=== PATIENT | male | born 1980 | race Caucasian/White ===

== ENCOUNTER 2019-11-26 13:11 | Outpatient (CLI) | payer OTHER, SELFPAY ==
[2019-11-26 13:44] LABS: Add Urine Microscopic? YES; Appearance Urine Clear (Clear); Bacteria Urine Trace /hpf; Bilirubin Urine Negative (Negative); Blood Urine 1+ (Negative); Color Urine Yellow (Yellow); Glucose Urine UA Negative (Negative); Ketones Urine Negative (Negative); Leukocyte Esterase Ur 2+ LEU/UL (Negative); Mucus Urine Rare /lpf; Nitrate Urine Negative (Negative); Protein Urine Negative (Negative); Specific Grav Ur 1.019 (1.001-1.035); Squamous Epithelial Cell Urine Rare /hpf (Few); Urobilinogen Urine Negative mg/dL (<2.0); WBC Urine 51-75 /hpf
== END 2019-11-26 13:12 | disposition home or self-care (01) ==
LOC: ANHLAB 13:12
PROVIDERS: PCP Physician Assistant; Visit Provider Physician Assistant
DX: R30.0 Dysuria (principal)
CPT/HCPCS: 81001; 87086; 87088

== ENCOUNTER 2020-01-06 14:25 | Emergency (ER) | payer OTHER, SELFPAY ==
--- NOTE | 2020-01-06 14:26 | ED_ITS ---
I attest that this documentation has been prepared under the direction and in the presence of Usman Huffman MD. Dre Reynolds Scribe 01/06/20;14:28 HPI - URI/Sore Throat General Chief Complaint: Upper Respiratory Infection Stated Complaint: sob/cough Related Data Allergies Allergy/AdvReac Type Severity Reaction Status Date / Time No Known Allergies Allergy Unverified 07/04/19 08:49 [facility] Past Medical History Medical History Arthritis Renal disease Surgical History Surgical History (Updated 01/06/20 @ 14:27 by Dre Reynolds) No history of previous surgery Family History Family History Sibling Family history of multiple sclerosis Hypertension Mother Family history of pancreatic cancer Family history of seizure disorder Social History Social History (Updated 01/06/20 @ 14:27 by Dre Reynolds) Smoking packs per day: 1 Smoking cigarettes per day: 20.0 Smoking status: Heavy tobacco smoker Second hand tobacco smoke exposure: Yes Alcohol intake: current Substance use type: marijuana Discharge Plan Discharge Prescriptions: No Action sulfamethoxazole-trimethoprim [Bactrim DS] 800-160 mg tablet 1 tablet PO Q12H Qty: 14 RF: 0
[2020-01-06 14:37] VITALS: BP 135/91; PULSE 91; RESP 20; TEMP 36.8; O2SAT 98
--- NOTE | 2020-01-06 14:51 | ED.SOB ---
HPI - SOB/Dyspnea General Chief Complaint: Upper Respiratory Infection Stated Complaint: sob/cough Time Seen by Provider: 01/06/20 15:00 Source: patient and RN notes reviewed Mode of arrival: ambulatory Limitations: no limitations History of Present Illness HPI Narrative: A 39 y/o male, who is a smoker and nondrinker, presents to the with worsening SOB beginning last night. He reports an associated dry cough. 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 He also denies any fevers, rhinorrhea, wheezes, or any other medical complaints at this time. The patient has been informed that they may have pre-hypertension or Hypertension based on a BP reading in the department. I recommend that the patient call the primary care provider listed on their discharge instructions or a physician of their choice this week to arrange follow up for further evaluation of possible pre-hypertension or Hypertension MD elicited complaint: shortness of breath Onset (ago): day(s) (1) Timing: progressively worsening Associated symptoms: cough (dry) Related Data Allergies Allergy/AdvReac Type Severity Reaction Status Date / Time No Known Allergies Allergy Verified 01/06/20 14:28 Review of Systems Review of Systems: Narrative: General/Constitutional: No weight loss,fever Eyes: N0: Redness,discharge Ears/Nose/Throat: No: Epistaxis,ear discharge, rhinorrhea. Respiratory: Denies: Hemoptysis or wheezes. Reports SOB and a dry cough. Gastrointestinal: No Vomiting, Bleeding-rectal Skin: No Lumps, eruption Neurologic: No Focal Weakness,Sz Hematologic: Denies: Petechiae/Purpura Psychiatric: No: Suicida ideationl All Other Systems: Reviewed and Negative [facility] Past Medical History Medical History (Updated 01/08/20 @ 00:01 by Nery Liu) Arthritis Renal disease Surgical History Surgical History (Updated 01/06/20 @ 15:07 by Dre Reynolds) History of bladder surgery InterStim placement. Family History Family History Sibling Family history of multiple sclerosis Hypertension Mother Family history of pancreatic cancer Family history of seizure disorder Social History Social History (Updated 01/06/20 @ 14:27 by Dre Reynolds) Smoking packs per day: 1 Smoking cigarettes per day: 20.0 Smoking status: Heavy tobacco smoker Second hand tobacco smoke exposure: Yes Alcohol intake: current Substance use type: marijuana Gender identity (if verbalized by the patient): Male Comments At time of signature, agree with nursing past medical, surgical, social and family history. There is no relevant family history pertinent to the presenting complaint Exam Narrative: Exam Narrative: General Appearance: Well appearing, Well nourished EYE: PERRLA, Conjunctiva clear Ears: Auditory canal normal, TM normal Nose: Rhinorrhea, Mucousal erythema Mouth/Throat: MM moist, Uvula midline, Pharyngeal erythema Neck: Supple, No adenopathy Respiratory: No respiratory distress, Breath sounds equal, Clear to auscultation Cardiovascular: RRR, No JVD Musculoskeletal: Non tender, Normal strength Skin: Warm, Dry Neurological: A&O x3, CN II-XII intact Psychiatric: Normal mood, Normal affect Course Vital Signs Vital signs: Vital Signs Temperature 98.3 F 01/06/20 14:37 Pulse Rate 91 01/06/20 14:37 Respiratory Rate 20 01/06/20 14:37 Blood Pressure 135/91 H 01/06/20 14:37 Pulse Oximetry 98 01/06/20 14:37 Temperature 98.3 F 01/06/20 14:37 Pulse Rate 91 01/06/20 14:37 Respiratory Rate 20 01/06/20 14:37 Blood Pressure 135/91 H 01/06/20 14:37 Pulse Oximetry 98 01/06/20 14:37 MDM - SOB/Dyspnea Lab Data Labs: Influenza A Screen Negative Reference Range: Negative Influenza B Screen Negative Reference Range: Negative
== END 2020-01-06 15:21 | disposition home or self-care (01) ==
PROVIDERS: Emergency Provider Emergency Medicine; PCP Physician Assistant
DX: R06.02 Shortness of breath (principal); R05 Cough; M19.90 Unspecified osteoarthritis, unspecified site; F17.210 Nicotine dependence, cigarettes, uncomplicated
CPT/HCPCS: 87081; 87804; 87880; 99213; G0463

== ENCOUNTER 2020-05-07 11:28 | Outpatient (CLI) | payer OTHER, SELFPAY ==
[2020-05-07 11:45] LABS: Basophils Absolute Auto 0.1 K/mm3 (0.0-0.1); Basophils Percent Auto 0.9 % (0.2-1.2); Eosinophils Absolute Auto 0.2 K/mm3 (0-0.3); Eosinophils Percent Auto 2.4 % (0-4.4); Hematocrit 47.4 % (42.0-52.0); Hemoglobin 17.2 g/dL (14.0-18.0); Immature Granulocyte Absolute 0.03 K/mm3 (0.00-0.031); Immature Granulocyte Percent A 0.3 % (0-0.5); Lymphocytes Absolute Auto 2.41 K/mm3 (0.9-3.2); Lymphocytes Percent Auto 26.3 % (18.3-44.2); Mean Corpuscular HGB Conc 36.3 g/dl (32-36); Mean Corpuscular Hemoglobin 35.7 pg (26-34); Mean Corpuscular Volume 98.3 fl (80-100); Mean Platelet Volume 10.4 fl (7.4-10.4); Monocytes Absolute Auto 0.5 K/mm3 (0.1-0.6); Neutrophils Percent Auto 65.1 % (45.5-73.1); Platelet Count Result 243 k/mm3 (150-375); Red Blood Count 4.82 M/mm3 (4.6-6.20); Red Cell Distribution Width 12.3 % (11.5-14.5); White Blood Count 9.2 K/mm3 (4.5-10.0)
[2020-05-07 12:08] LABS: Alanine Aminotransferase 21 U/L (4-50); Albumin Level 4.5 g/dL (3.5-5.1); Alkaline Phosphatase 90 U/L (38-126); Aspartate Amino Transferase 34 U/L (17-59); Bilirubin,Total 0.9 mg/dL (0.2-1.3); Blood Urea Nitrogen 22 mg/dL (9-20); Calcium 9.3 mg/dL (8.4-10.2); Carbon Dioxide 26 mmol/L (22-30); Chloride 108 mmol/L (98-107); Cholesterol 218 mg/dL (0-200); Estimated Glomerular Filt Rate > 60; Glucose 107 mg/dL (75-110); HDL Direct 45 mg/dL; Potassium 4.4 mmol/L (3.4-5.0); Sodium 141 mmol/L (137-145); Triglycerides 91 mg/dL (<150)
[2020-05-07 12:11] LABS: LDL Cholesterol Direct 141 mg/dL
[2020-05-07 12:31] LABS: Prostate Specific Antigen 0.3 ng/mL (< OR = 4.0)
== END 2020-05-07 11:29 | disposition home or self-care (01) ==
LOC: ANHLAB 11:30
PROVIDERS: PCP Physician Assistant; Visit Provider Internal Medicine
DX: Z00.00 Encounter for general adult medical examination without abnormal findings (principal)
CPT/HCPCS: 36415; 80053; 80061; 84153; 84443; 85025; G0103

== ENCOUNTER 2020-07-03 13:07 | Emergency (ER) | payer OTHER, SELFPAY ==
[2020-07-03 13:27] VITALS: BP 133/90; PULSE 82; RESP 14; TEMP 36.7; O2SAT 99
--- NOTE | 2020-07-03 14:17 | ED.WOUNDLAC ---
HPI - Wound/Laceration General Chief Complaint: Wound/Laceration Stated Complaint: head laceration Time Seen by Provider: 07/03/20 13:35 Source: patient Mode of arrival: ambulatory Limitations: no limitations History of Present Illness HPI narrative: This is a 40-year-old male that presents the emergency department for laceration to his forehead sustained just prior to arrival. Reports he accidentally hit himself with a wrench while at work. Reports he is up-to-date on tetanus. Denies vision changes, vomiting, loss of consciousness, numbness, or weakness. Related Data Home Medications Medication Instructions Recorded Confirmed No Home Medications 05/24/20 05/24/20 Allergies Allergy/AdvReac Type Severity Reaction Status Date / Time No Known Allergies Allergy Verified 05/17/20 10:10 Review of Systems Review of Systems: Narrative: CONSTITUTIONAL: Denies fever EYES: Denies visual changes GASTROINTESTINAL: Denies vomiting NEUROLOGIC: Reports headache. Denies numbness, or weakness. All systems reviewed & are unremarkable except as noted in HPI and below PMFSH Social History Social History Smoking packs per day: 1 Smoking cigarettes per day: 20.0 Smoking status: Current every day smoker Second hand tobacco smoke exposure: Yes Alcohol intake: former Substance use: current Substance use type: marijuana Gender identity (if verbalized by the patient): Male Exam Narrative: Exam Narrative: GENERAL: Well-appearing, well-nourished, and in no acute distress. HEAD: Normocephalic, atraumatic. EYES: PERRLA and EOMI. ENT: Nares clear, no rhinorrhea or epistaxis. Mucous membranes moist. Oropharynx without tonsillar hypertrophy exudate or other lesions. Bilateral TMs pearly puentes non-bulging NECK: Supple. No adenopathy or masses. CHEST: Clear to auscultation. No respiratory distress. No wheezes rales or rhonchi HEART: Regular rate and rhythm. No murmur heard. Normal peripheral pulses. EXTREMITIES: Normal range of motion. No edema. SKIN: Warm, dry, no rash. NEURO: No focal deficits. Alert and oriented x3. Cranial nerves II through XII grossly intact PSYCH: Normal mood and affect Course Vital Signs Vital signs: Vital Signs Temperature 98.0 F 07/03/20 13:27 Pulse Rate 82 07/03/20 13:27 Respiratory Rate 14 07/03/20 13:27 Blood Pressure 133/90 07/03/20 13:27 Pulse Oximetry 99 07/03/20 13:27 Temperature 98.0 F 07/03/20 13:27 Pulse Rate 82 07/03/20 13:27 Respiratory Rate 14 07/03/20 13:27 Blood Pressure 133/90 07/03/20 13:27 Pulse Oximetry 99 07/03/20 13:27 Procedures Laceration Laceration 1: Date: 07/03/20 Time: 15:12 Site: face Side (If applicable): left Size (cm): 2 Description: linear Depth: simple, single layer Local Anesthetic: lidocaine 1% and with epi Amount of anesthesia used (mL): 2 Pre-repair: irrigated ====== Skin Level ====== Skin layer closed with: nylon Size (cm): 6-0 Number of sutures: 4 ====== Subcutaneous Layer ====== Subcutaneous layer closed with: other (Monocryl) Size: 4-0 Number of sutures: 1 Technique: simple, interrupted ====== Muscle Layer ====== ====== Tendon Layer ====== MDM - Wound/Laceration MDM Narrative Medical decision making narrative: Patient presents to the emergency department for laceration to the forehead sustained just prior to arrival. Hit himself in the face with a wrench. Denies vision changes, vomiting, numbness, or loss of consciousness. He is up-to-date on tetanus. Laceration was cleansed and closed with sutures. He was educated on wound care. He is to follow-up with primary care doctor. He was given warnings to return to the ER Critical Care Time Critical Care Time Critical Care Time: No Discharge Plan Discharge Clini
[2020-07-03 15:45] VITALS: BP 141/94; PULSE 71; RESP 14; O2SAT 99
== END 2020-07-03 15:30 | disposition home or self-care (01) ==
PROVIDERS: Emergency Provider Emergency Medicine; PCP Physician Assistant
DX: S01.81XA Laceration without foreign body of other part of head, initial encounter (principal); W22.8XXA Striking against or struck by other objects, initial encounter; Y99.0 Civilian activity done for income or pay; F17.210 Nicotine dependence, cigarettes, uncomplicated
CPT/HCPCS: 12051; 99282

== ENCOUNTER → 2021-01-17 10:23 | Outpatient (CLI) | payer OTHER, SELFPAY ==
[2021-01-18 18:30] LABS: SARS-CoV-2 RNA PCR Negative
== END ==
PROVIDERS: PCP Physician Assistant; Visit Provider Physician Assistant
DX: R68.89 Other general symptoms and signs (principal); Z20.822 Contact with and (suspected) exposure to COVID-19
CPT/HCPCS: C9803; U0003; U0005

== ENCOUNTER 2021-01-28 12:25 | Outpatient (CLI) | payer OTHER, SELFPAY ==
[2021-01-28 12:59] LABS: Add Urine Microscopic? NO; Appearance Urine Clear (Clear); Bilirubin Urine Negative (Negative); Blood Urine Negative (Negative); Color Urine Straw (Yellow); Glucose Urine UA Negative (Negative); Ketones Urine Negative (Negative); Leukocyte Esterase Ur Negative LEU/UL (NEGATIVE); Nitrate Urine Negative (Negative); Protein Urine Negative (Negative); Specific Grav Ur 1.008 (1.001-1.035); Urobilinogen Urine Negative mg/dL (<2.0)
[2021-01-28 13:05] LABS: Alanine Aminotransferase 13 U/L (4-50); Albumin Level 4.1 g/dL (3.5-5.1); Alkaline Phosphatase 75 U/L (38-126); Anion Gap 5 mmol/L (8-16); Aspartate Amino Transferase 23 U/L (17-59); Bilirubin,Total 0.6 mg/dL (0.2-1.3); Blood Urea Nitrogen 43 mg/dL (9-20); Carbon Dioxide 25 mmol/L (22-30); Chloride 110 mmol/L (98-107); Estimated Glomerular Filt Rate 15; Glucose 108 mg/dL (75-110); Potassium 5.1 mmol/L (3.4-5.0); Sodium 140 mmol/L (137-145)
== END 2021-01-28 12:26 | disposition home or self-care (01) ==
PROVIDERS: PCP Physician Assistant; Visit Provider Physician Assistant
DX: R30.0 Dysuria (principal); N28.9 Disorder of kidney and ureter, unspecified
CPT/HCPCS: 36415; 80053; 81003; 87086

== ENCOUNTER 2021-01-31 10:22 | Inpatient (IN) | payer OTHER, SELFPAY ==
[2021-01-31] VITALS (13 sets, daily range): BP systolic 144–183; BP diastolic 80–99; PULSE 61–96; RESP 16–18; TEMP 35.9–36.9; O2SAT 98–100; BMI 27.1
--- NOTE | ~2021-01-31 | CT_ITS ---
EXAMINATION: CT abdomen pelvis wo con DATE: 01/31/2021 15:05 INDICATION: Acute renal failure TECHNIQUE: Computed tomography (CT) of the abdomen and pelvis was performed without intravenous contr ast. The dose-length product (DLP) was 393.37 mGy-cm. Automated exposure control and iterative recons truction technique were employed. COMPARISON: 10/20/2015 FINDINGS: Minimal dependent atelectasis is present in the lung bases. The heart size is normal. Withi n the limitations of noncontrast examination, the liver, spleen, pancreas, gallbladder, and adrenal g lands are normal. There is marked thickening of the urinary bladder which is decompressed by Reid ca theter. There is moderate bilateral hydroureteronephrosis. There is chronic atrophy of the left kidne y. There is chronic increase in number of nonpathologically enlarged retroperitoneal lymph nodes, lik juan carlos reactive. The appendix is normal. There is no free intraperitoneal gas or evidence of bowel obstr uction. A reservoir for a penile implant is present in the right pelvis. A neurostimulator is implant ed in the right flank subcutaneous tissues. Its lead enters the sacrum on the left at S3. There is mo derate lumbar spondylosis at L5-S1. A tiny umbilical hernia containing fat is noted. IMPRESSION: 1. Marked thickening of the urinary bladder with moderate bilateral hydroureteronephrosis, possibly r eflecting cystitis. 2. Chronic atrophy of the left kidney. Reviewed, dictated and finalized at location B. IMPRESSION: 1. Marked thickening of the urinary bladder with moderate bilateral hydroureter onephrosis, possibly reflecting cystitis. 2. Chronic atrophy of the left kidney.
--- NOTE | ~2021-01-31 | XR_ITS ---
XR abdomen/kub 1V DATE: 01/31/2021 15:10 INDICATION: Acute renal failure TECHNIQUE: AP rejection, 2 views COMPARISON: 01/31/[address] abdomen pelvis FINDINGS: Neurostimulator battery pack overlying right lower back with electrode extending through a left sacral neural foramen. Nonspecific bowel gas pattern with no evidence of bowel obstruction. The psoas shadows are intact. No visceromegaly or significant abnormal calcification is evident. The lung bases are clear. Heart size appears normal. IMPRESSION: Right neuro stimulator device with left sacral lead Nonspecific abdomen Reviewed, dictated and finalized at Location [facility]. Reviewed, dictated and finalized at location A.
--- NOTE | 2021-01-31 10:41 | ED.RECABL ---
HPI - Recheck/Abnormal Lab/Rx General Chief Complaint: Recheck/Abnormal Lab/Rx Stated Complaint: renal failure Time Seen by Provider: 01/31/21 10:40 Source: patient Mode of arrival: ambulatory Limitations: no limitations History of Present Illness HPI narrative: Patient is a 40-year-old male sent here by his doctor due to kidney failure . Patient states that he had lab work done last week. Patient states that he has not been feeling well for the past few weeks, described as nausea in the morning accompanied by fatiue. Denies any headache, dizziness chest pain, shortness of breath, abdominal pain, vomiting, diarrhea, fever or chills. Related Data Allergies Allergy/AdvReac Type Severity Reaction Status Date / Time No Known Allergies Allergy Verified 01/31/21 10:52 Review of Systems Review of Systems: All systems reviewed & are unremarkable except as noted in HPI and below Constitutional: Constitutional: Denies body ache(s), Denies chills, Denies excessive sweating, Denies fatigue, Denies fever(s), Denies headache(s), Denies lethargy, Denies malaise, Denies weakness and Denies weight loss Eyes: Eyes: Denies blurry vision, Denies change in vision and Denies loss of vision ENT: Denies dizziness, Denies ear discharge, Denies headache(s), Denies lip swelling, Denies epistaxis, Denies nasal congestion, Denies neck pain, Denies throat swelling and Denies tongue swelling Cardiovascular: Cardiovascular: Denies chest pain, Denies chest pain at rest, Denies chest pain with activity, Denies diaphoresis, Denies rapid heart rate, Denies edema, Denies irregular heart rhythm, Denies lightheadedness, Denies palpitations, Denies dyspnea and Denies dyspnea on exertion Respiratory: Respiratory: Denies chest congestion, Denies cough, Denies hemoptysis, Denies dyspnea and Denies dyspnea on exertion Gastrointestinal: Gastrointestinal: Denies abdominal pain, Denies melena, Denies hematochezia, Denies diarrhea, Denies vomiting and Denies hematemesis Musculoskeletal: Musculoskeletal: Denies abnormal gait, Denies deformity, Denies joint swelling, Denies limited range of motion, Denies neck pain and Denies numbness Neurologic: Denies Abnormal speech present, Denies abnormal gait, Denies confusion, Denies dizziness, Denies headache(s), Denies focal weakness, Denies loss of vision, Denies numbness, Denies Other visual disturbances, Denies Sensory deficit (Neuro) and Denies weakness Psychiatric: Psychiatric: Denies confusion, Denies depression, Denies auditory hallucinations, Denies homicidal ideation and Denies suicidal ideation Endocrine: Endocrine: Denies cold intolerance, Denies excessive sweating, Denies fatigue, Denies heat intolerance and Denies palpitations Hematologic/Lymphatic: Hematologic/Lymphatic: Denies easy bleeding and Denies easy bruising Allergic/Immunologic: Allergic/Immunologic: Denies lip swelling, Denies throat swelling and Denies tongue swelling PMFSH Past Medical History Medical History Arthritis Renal disease Surgical History Surgical History History of bladder surgery InterStim placement. Family History Family History Sibling Family history of multiple sclerosis Hypertension Mother Family history of pancreatic cancer Family history of seizure disorder Social History Social History Smoking packs per day: 1 Smoking cigarettes per day: 20.0 Smoking status: Current every day smoker Second hand tobacco smoke exposure: Yes Alcohol intake: former Substance use: current Substance use type: marijuana Gender identity (if verbalized by the patient): Male Exam Const: General: cooperative, healthy appearing, comfortable, no acute distress, well developed, alert and awake; No confusion Orien
[2021-01-31 10:57] LABS: Basophils Absolute Auto 0.1 K/mm3 (0.0-0.1); Basophils Percent Auto 0.7 % (0.2-1.2); Eosinophils Absolute Auto 0.2 K/mm3 (0-0.3); Eosinophils Percent Auto 2.7 % (0-4.4); Hematocrit 35.4 % (42.0-52.0); Hemoglobin 12.1 g/dL (14.0-18.0); Immature Granulocyte Absolute 0.03 K/mm3 (0.00-0.031); Immature Granulocyte Percent A 0.4 % (0-0.5); Lymphocytes Absolute Auto 1.61 K/mm3 (0.9-3.2); Lymphocytes Percent Auto 21.5 % (18.3-44.2); Mean Corpuscular HGB Conc 34.2 g/dl (32-36); Mean Corpuscular Hemoglobin 34.2 pg (26-34); Monocytes Absolute Auto 0.5 K/mm3 (0.1-0.6); Monocytes Percent Auto 7.1 % (2.6-8.5); Neutrophils Absolute Auto 5.1 K/mm3 (1.3-6.7); Neutrophils Percent Auto 67.6 % (45.5-73.1); Platelet Count Result 298 k/mm3 (150-375); Red Blood Count 3.54 M/mm3 (4.6-6.20); Red Cell Distribution Width 11.9 % (11.5-14.5); White Blood Count 7.5 K/mm3 (4.5-10.0)
[2021-01-31] MEDS: SODIUM CHLORIDE 0.9% IV 1,000 ML 999 ML IV CONT (10:59)
--- NOTE | 2021-01-31 11:00 | PC.NURSE ---
Pt reports he catherizes himself at night because is unable to empty his bladder completely.
[2021-01-31 11:05] LABS: Add Urine Microscopic? NO; Appearance Urine Clear (Clear); Bilirubin Urine Negative (Negative); Blood Urine Negative (Negative); Color Urine Straw (Yellow); Glucose Urine UA Negative (Negative); Ketones Urine Negative (Negative); Leukocyte Esterase Ur Negative LEU/UL (Negative); Nitrate Urine Negative (Negative); Protein Urine Negative (Negative); Specific Grav Ur 1.008 (1.001-1.035); Urobilinogen Urine Negative mg/dL (<2.0)
[2021-01-31 11:09] LABS: Alanine Aminotransferase 13 U/L (4-50); Albumin Level 4.2 g/dL (3.5-5.1); Alkaline Phosphatase 76 U/L (38-126); Anion Gap 5 mmol/L (8-16); Aspartate Amino Transferase 26 U/L (17-59); Bilirubin,Total 0.5 mg/dL (0.2-1.3); Blood Urea Nitrogen 40 mg/dL (9-20); Calcium 8.8 mg/dL (8.4-10.2); Carbon Dioxide 27 mmol/L (22-30); Chloride 112 mmol/L (98-107); Estimated CRCL calculation 18 ml/min; Estimated Glomerular Filt Rate 14; Glucose 105 mg/dL (75-110); Potassium 4.6 mmol/L (3.4-5.0); Sodium 144 mmol/L (137-145)
--- NOTE | 2021-01-31 12:18 | PC.NURSE ---
Dr. Lino at bedside for evaluation.
--- NOTE | 2021-01-31 13:12 | PC.NURSE ---
floor unable to take report at this time.
--- NOTE | 2021-01-31 14:10 | PM.IMHP ---
H&P: HPI History of Present Illness Date/Time: 01/31/21 14:10 Chief Complaint: Abnormal lab Narrative: This is a 40-year-old male with past medical history significant for neurogenic bladder, patient self catheter is sizes at nighttime prior to going to bed, he has not been feeling well lately has had some nausea vomiting and chills, he went to see his primary care physician who order some labs for him an antibiotic, today he was called after he was found to have elevated creatinine in the lab work. Patient did not notice any changes when he comes to avoid but has been dribbling and spotting the bed. He has been in his usual state of health prior to this, no abdominal pain, no pelvic pressure, no diarrhea, no constipation. Preliminary workup in the emergency room was significant elevated BUN and creatinine from patient's baseline a urinalysis was normal, rest of the chemistry panel and CBC panel was pretty much unrevealing. Patient is been admitted for further workup and management. Review of Systems Review of Systems: Narrative: Patient presented to the emergency room after he was told by his primary care physician does his kidney function was abnormal on lab work Constitutional: Constitutional: Reports chills and Reports malaise Eyes: Comments: No changes in vision ENT: Comments: No earache no sore throat no nasal congestion Cardiovascular: Comments: No chest pain no PND no orthopnea Respiratory: Comments: No shortness of breath no cough no sputum production no hemoptysis Gastrointestinal: Comments: had some nausea and stomach upset Genitourinary: Comments: Dribbling, urinary incontinence. Musculoskeletal: Comments: No muscle aches or pains no joint pain Integumentary/Breasts: Comments: No rash Neurologic: Comments: No sensorimotor deficit Endocrine: Comments: No polydipsia polyphagia polyuria no heat or cold intolerance Hematologic/Lymphatic: Comments: No rash PMFSH Past Medical History Medical History Arthritis Renal disease Surgical History Surgical History History of bladder surgery InterStim placement. Family History Family History Sibling Family history of multiple sclerosis Hypertension Mother Family history of pancreatic cancer Family history of seizure disorder Social History Social History Smoking packs per day: 1 Smoking cigarettes per day: 20.0 Years smoked: 25 Smoking pack-years: 25.00 Smoking status: Current every day smoker Tobacco type: cigarettes Second hand tobacco smoke exposure: Yes Alcohol intake: current Drinks per week: 0 Substance use: current Substance use type: marijuana Gender identity (if verbalized by the patient): Male Sexual Orientation (if Verbalized by the Patient): Straight or Heterosexual Spiritual care concerns: No Meds Home Medications and Allergies Home Medications Medication Instructions Recorded Confirmed Type ondansetron 4 mg disintegrating See Rx Instructions PO Q8H PRN #12 01/19/21 01/19/21 Rx tablet tablet amoxicillin 875 mg-potassium 1 tablet PO BID #20 tablet 01/21/21 Rx clavulanate 125 mg tablet Allergies Allergy/AdvReac Type Severity Reaction Status Date / Time No Known Allergies Allergy Verified 01/31/21 14:13 Vital Signs Vital Signs - 24 hr 01/31/21 10:31 01/31/21 10:43 01/31/21 10:46 Temperature 96.6 F L Pulse Rate 96 Respiratory Rate 16 Blood Pressure 176/96 H 150/95 H 154/94 H Pulse Oximetry 100 100 100 01/31/21 11:01 01/31/21 11:16 01/31/21 11:31 Temperature Pulse Rate Respiratory Rate Blood Pressure 157/94 H 151/92 H 157/99 H Pulse Oximetry 100 100 100 01/31/21 12:03 01/31/21 12:15 01/31/21 13:16 Temperature Pulse Rate Re
--- NOTE | 2021-01-31 14:34 | PC.NURSE ---
This patient, Bernardo Rucker, was admitted to [address] [place] [address] Room 316-02 on 01/31/21 at 1400. Patient/family oriented to hospital policies and general routines including ID bracelet, bed and alarms, visiting hours, pain management, procedures, bathroom and other care routines, personal items, smoking policy, room service/diet, and visiting hours. Information on how to activate the Rapid Response Team has been discussed. Patient/Family are encouraged to report perceived risks to care and to ask questions if they do not understand what they are told or what they should do.
--- NOTE | 2021-01-31 15:33 | WPDURCON ---
Assessment and Plan Assessment and plan (1) Acute renal failure: Qualifiers: Acute renal failure type: unspecified Qualified Code(s): N17.9 - Acute kidney failure, unspecified Code(s): N17.9 - Acute kidney failure, unspecified Status: Acute Assessment and Plan: Likely secondary to infrequent CIC for atonic bladder. He catheterizes nightly after being diagnosed with an atonic bladder from a Urodynamic study done on 12/06/2015, which is not often enough for him causing bilateral hydro and cloudy, malodorous urine. Would recommend a hitchcock until creatinine returns to baseline, then catheterization 2-3x/daily instead of nightly. CT states potential cystitis, however urine culture from 01/28/2021 was negative, we will repeat a urine culture with catheterized urine. Would not advise antibiotics at this time. Will monitor creatinine. (2) Cloudy urine: Code(s): R82.90 - Unspecified abnormal findings in urine Status: Acute Urology Consult Note HPI Date Seen: 01/31/21 Requesting Physician: Maciej Lino MD Primary Care Provider: Johnny Brown PA-C Consult Narrative Narrative: Bernardo Rucker is a 40 year old male who presented to the ER after being told to come by PCP d/t ARF from labs drawn last week with c/o nausea and fatigue. He is well known to our practice and sees Dr. Gonzales for ED and atonic bladder as well as Dr. Mccabe for management of his InterStim device. He catheterizes nightly d/t/ known retention. He had an IPP in 09/2020 and an Interstim device placed in 07/10. He denies flank pain, dysuria, hematuria or abdominal pain. His states he had a fever recently. He has chronically cloudy, malodorous urine d/t catheterization. He was placed on antibiotics last week for what was thought to be a UTI but the urine culture from 01/28/2021 was negative. He did have a CT today which shows bladder wall thickening and bilateral hydronephrosis indicating possible cystitis, however he is asymptomatic. His UA is clear today. Review of Systems Cardiovascular: Cardiovascular: Denies chest pain Respiratory: Respiratory: Reports no additional respiratory complaints Gastrointestinal: Gastrointestinal: Denies abdominal pain, Reports nausea and Denies vomiting Genitourinary: Genitourinary: Denies dysuria, Denies flank pain, Reports urinary hesitancy and Denies urinary urgency PMFSH Past Medical History Medical History Arthritis Renal disease Surgical History Surgical History History of bladder surgery InterStim placement. Family History Family History Sibling Family history of multiple sclerosis Hypertension Mother Family history of pancreatic cancer Family history of seizure disorder Social History Social History Smoking packs per day: 1 Smoking cigarettes per day: 20.0 Years smoked: 25 Smoking pack-years: 25.00 Smoking status: Current every day smoker Tobacco type: cigarettes Second hand tobacco smoke exposure: Yes Alcohol intake: current Drinks per week: 0 Substance use: current Substance use type: marijuana Gender identity (if verbalized by the patient): Male Sexual Orientation (if Verbalized by the Patient): Straight or Heterosexual Spiritual care concerns: No Meds Home Medications and Allergies Home Medications Medication Instructions Recorded Confirmed Type ondansetron 4 mg disintegrating See Rx Instructions PO Q8H PRN #12 01/19/21 01/19/21 Rx tablet tablet amoxicillin 875 mg-potassium 1 tablet PO BID #20 tablet 01/21/21 Rx clavulanate 125 mg tablet Allergies Allergy/AdvReac Type Severity Reaction Status Date / Time No Known Allergies Allergy Verified 01/31/21 14:13 Vital Signs Vital
--- NOTE | 2021-01-31 15:47 | PM.CNNEP ---
Assessment and Plan Assessment and plan (1) Acute renal failure: Qualifiers: Acute renal failure type: unspecified Qualified Code(s): N17.9 - Acute kidney failure, unspecified Code(s): N17.9 - Acute kidney failure, unspecified Status: Acute Assessment and Plan: due to urinary retention and #2 likely secondary to not enough intermittent self catheterizations given history of bladder atony hitchcock catheter in place follow trend of repeat labs and UOP (2) Bilateral hydronephrosis: Code(s): N13.30 - Unspecified hydronephrosis Status: Acute Assessment and Plan: as noted by admission imaging studies hitchcock catheter in place Urology recommendations noted Will continue to follow. History of Present Illness Reason for Consult Consult date: 01/31/21 Reason for consult: acute renal failure Chief Complaint Chief complaint: Acute renal failure History of Present Illness Narrative: The patient is a 40 year old male with a past medical history as outlined below Who presented to [facility] Emergency room at the behest of his primary care physician for further evaluation of abnormal labs. The patient states that he has not been feeling very well recently with complaints of nausea, vomiting, and chills. He went to see his primary care physician for further evaluation of this issue and it was the thought that he may have a urinary tract infection given he had complaints of cloudy urine. Routine blood tests were drawn and the results came back today that showed a markedly elevated BUN and creatinine in comparison to his normal baseline. Given these findings, he was referred to the ER for further evaluation and therapy Workup and evaluation emergency room demonstrated the a for mentioned labs that showed a marked decline in his kidney function although his CBC and urinalysis were unremarkable. He had no critical electrolyte abnormalities per se despite his acute kidney injury/acute renal failure. Given the findings of his renal dysfunction a CT scan was done of the abdomen pelvis which demonstrated bilateral hydronephrosis. Given his known history of bladder atony/neurogenic bladder as well as the fact that he has been only self catheterizes himself only once a day, it is felt that these issues are responsible for his acute kidney injury/renal dysfunction. A Hitchcock catheter was placed and he was subsequent admitted the hospital for further evaluation and therapy. Since admission, Urology has seen the patient with recommendations to continue his Hitchcock catheter least until his creatinine normalizes with the instructions to the patient that he will have to continue self intermittent catheterization but to do so more frequently than just once a day. Renal consultation was requested due to his acute kidney injury/ acute renal failure. The patient has normal baseline kidney function / creatinine as from review his records as already mentioned, the etiology of his acute decline in renal function is related to the a for mentioned bilateral hydronephrosis in association with bladder atony. He otherwise has no other acute complaints voiced at this time and appears to be in no distress. He is also receiving IV fluids at this time on the assumption that perhaps some component of volume depletion may be playing a role with his acute kidney injury as well. Currently, as already mentioned, he does not appear to be in any distress. Review of Systems Review of Systems: Narrative: As per HPI. [facility] Past Medical History Medical History Arthritis Renal disease Surgical History Surgical History History of bladder surgery InterStim placement. Family History Family History Sibling Family history of multiple scler
[2021-01-31] MEDS: SODIUM CHLORIDE 0.9% IV 1,000 ML 125 ML IV CONT (16:10)
[2021-02-01] MEDS: SODIUM CHLORIDE 0.9% IV 1,000 ML 125 ML IV CONT ×3 (01:17→16:48)
[2021-02-01 06:00] VITALS: BP 161/73; PULSE 58; RESP 16; TEMP 36.4; O2SAT 96
[2021-02-01 06:38] LABS: Anion Gap 4 mmol/L (8-16); Blood Urea Nitrogen 28 mg/dL (9-20); Calcium 8.4 mg/dL (8.4-10.2); Carbon Dioxide 22 mmol/L (22-30); Chloride 116 mmol/L (98-107); Estimated CRCL calculation 25 ml/min; Estimated Glomerular Filt Rate 20; Glucose 106 mg/dL (75-110); Potassium 4.4 mmol/L (3.4-5.0); Sodium 142 mmol/L (137-145)
[2021-02-01 08:37] LABS: Basophils Absolute Auto 0.1 K/mm3 (0.0-0.1); Basophils Percent Auto 0.7 % (0.2-1.2); Eosinophils Absolute Auto 0.2 K/mm3 (0-0.3); Eosinophils Percent Auto 2.5 % (0-4.4); Hematocrit 33.5 % (42.0-52.0); Hemoglobin 11.6 g/dL (14.0-18.0); Immature Granulocyte Absolute 0.02 K/mm3 (0.00-0.031); Immature Granulocyte Percent A 0.3 % (0-0.5); Lymphocytes Absolute Auto 1.91 K/mm3 (0.9-3.2); Lymphocytes Percent Auto 25.4 % (18.3-44.2); Mean Corpuscular HGB Conc 34.6 g/dl (32-36); Mean Corpuscular Hemoglobin 34.9 pg (26-34); Mean Corpuscular Volume 100.9 fl (80-100); Mean Platelet Volume 10.5 fl (7.4-10.4); Monocytes Absolute Auto 0.5 K/mm3 (0.1-0.6); Monocytes Percent Auto 6.8 % (2.6-8.5); Neutrophils Absolute Auto 4.8 K/mm3 (1.3-6.7); Neutrophils Percent Auto 64.3 % (45.5-73.1); Platelet Count Result 280 k/mm3 (150-375); Red Blood Count 3.32 M/mm3 (4.6-6.20); White Blood Count 7.5 K/mm3 (4.5-10.0)
[2021-02-01 09:15] LABS: Anion Gap 2 mmol/L (8-16); Blood Urea Nitrogen 27 mg/dL (9-20); Calcium 8.5 mg/dL (8.4-10.2); Carbon Dioxide 23 mmol/L (22-30); Chloride 116 mmol/L (98-107); Estimated CRCL calculation 26 ml/min; Estimated Glomerular Filt Rate 21; Glucose 108 mg/dL (75-110); Potassium 4.5 mmol/L (3.4-5.0); Sodium 141 mmol/L (137-145)
--- NOTE | 2021-02-01 09:41 | P.PNNP_ITS ---
Progress Note: A&P Assessment and Plan (1) Acute renal failure: Qualifiers: Acute renal failure type: unspecified Qualified Code(s): N17.9 - Acute kidney failure, unspecified Code(s): N17.9 - Acute kidney failure, unspecified Status: Acute Assessment and Plan: * slow improvement noted in creatinine * due to urinary retention and #2 * likely secondary to not enough intermittent self catheterizations given history of bladder atony * hitchcock catheter in place * follow trend of repeat labs and UOP (2) Bilateral hydronephrosis: Code(s): N13.30 - Unspecified hydronephrosis Status: Acute Assessment and Plan: * as noted by admission imaging studies * hitchcock catheter in place * Urology recommendations noted Will continue to follow. Subjective Date/time seen: 02/01/21 09:41 He states that he feels significantly better today; no acute issues or problems overnight or earlier this AM; no apparent distress noted. Exam Narrative: Exam Narrative: General: WD/WN male/ in NAD Heart: normal S1 and S2; no rub Lungs: clear to auscultation Abdomen: soft, nontender, nondistended, positive bowel sounds Extremities: no cyanosis or clubbing; no edema Skin: warm and dry Objective Data Vital Signs Vital Signs: Vital Signs Temp Pulse Resp BP Pulse Ox 02/01/21 06:00 36.4 C L 58 L 16 161/73 H 96 01/31/21 22:00 36.7 C 68 16 176/84 H 98 01/31/21 20:00 68 16 98 01/31/21 15:57 100 01/31/21 15:23 36.9 C 61 18 183/87 H 100 01/31/21 13:16 144/80 H 99 01/31/21 12:15 99 01/31/21 12:03 100 01/31/21 11:31 157/99 H 100 01/31/21 11:16 151/92 H 100 01/31/21 11:01 157/94 H 100 01/31/21 10:46 154/94 H 100 01/31/21 10:43 150/95 H 100 01/31/21 10:31 35.9 C L 96 16 176/96 H 100 Intake/Output Intake/Output: Intake & Output 01/29/21 01/30/21 01/31/21 02/01/21 23:59 23:59 23:59 23:59 Intake Total 1765 2790 Output Total 3350 3300 Balance -8105 510 Meds/Results Medications: Active Medications Generic Name Dose Route Start Last Admin Trade Name Freq PRN Reason Stop Dose Admin Sodium Chloride 1,000 mls @ 125 mls/hr 01/31/21 12:10 02/01/21 09:07 Normal Saline Iv IV CONT 125 mls/hr .Q8H SANJUANITA Administration Radiology Results: ITS Impressions Abdomen/Pelvis CT 01/31/21 15:08 IMPRESSION: 1. Marked thickening of the urinary bladder with moderate bilateral hydroureteronephrosis, possibly reflecting cystitis. 2. Chronic atrophy of the left kidney. Abdomen X-Ray 01/31/21 15:14 IMPRESSION: Right neuro stimulator device with left sacral lead Nonspecific abdomen Labs Labs: Laboratory Tests 02/01/21 05:59 02/01/21 08:46
--- NOTE | 2021-02-01 13:56 | PM.IMPN ---
Progress Note: A&P Assessment and Plan (1) Bilateral hydronephrosis: Code(s): N13.30 - Unspecified hydronephrosis Status: Acute Assessment and Plan: Secondary to patient only self catheterization once a day Appreciate urology note (2) Cloudy urine: Code(s): R82.90 - Unspecified abnormal findings in urine Status: Acute Assessment and Plan: Urine culture negative so far (3) Acute renal failure: Qualifiers: Acute renal failure type: unspecified Qualified Code(s): N17.9 - Acute kidney failure, unspecified Code(s): N17.9 - Acute kidney failure, unspecified Status: Acute Assessment and Plan: Likely secondary to post obstructive uropathy secondary to atonic bladder BUN and creatinine with slight improvement Will keep 1 more day and do aggressive hydration Appreciate nephrology note Repeat BMP in a.m. (4) Tobacco use: Code(s): Z72.0 - Tobacco use Status: Acute Assessment and Plan: Nicotine patch as needed Subjective Date/time seen: 02/01/21 13:56 I want to go home I feel much better Review of Systems Review of Systems: Narrative: Patient presented to the emergency room due to not feeling well having some chills at home patient was found to have urinary retention patient self catheters size just once a day due to atonic bladder Constitutional: Comments: Chills Cardiovascular: Comments: No chest pain no PND no orthopnea Respiratory: Comments: No shortness of breath no cough no sputum production Gastrointestinal: Comments: Stomach upset and nausea and vomiting Genitourinary: Comments: Urinary retention and urinary incontinence overflow Musculoskeletal: Comments: No muscle pain or joint pain Integumentary/Breasts: Comments: No rashes Neurologic: Comments: No sensorimotor deficit except for atonic bladder Exam Const: General: comfortable, no acute distress, well developed, alert and awake Nutritional Appearance: average body habitus Orientation/consciousness: patient oriented x3 HENMT: Head: normal to inspection, normocephalic and atraumatic Ears: hearing grossly normal bilaterally Face and sinus: normal facial exam Eyes: General: appearance normal, both eyes and all related structures Pupils: Equal, round and reactive pupils present EOM: EOMs intact bilaterally Neck: Neck: full ROM, no lymphadenopathy and no JVD Thyroid: thyroid normal Lymphatic: no lymphadenopathy noted Resp: Effort & Inspection: normal respiratory effort and able to speak in complete sentences Auscultation: clear to auscultation bilaterally Cardio: Jugular venous distension: no JVD Rate: regular rate Rhythm: regular rhythm Heart sounds: S1 normal heart sound present and S2 normal heart sound present GI: GI Palp: Yes Soft to palpation and Yes No hepatosplenomegaly present : General: Yes deferred Skin: Rashes: no rashes Wounds: no wounds Neuro: General: patient oriented x3 and CN's II-XI intact bilaterally Cranial nerves: Yes CN's II-XII intact bilaterally and Yes Equal, round and reactive pupils present Cognition (Neuro): normal cognition Speech: normal speech Gait exam (Neuro): Normal gait present Motor exam (neuro): 5/5 motor strength present throughout Extrem: General: normal to inspection, full ROM, no joint enlargement and no pedal edema Objective Data Vital Signs Vital Signs: Vital Signs - 24 hr 01/31/21 15:23 01/31/21 15:57 01/31/21 20:00 Temperature 98.4 F Pulse Rate 61 68 Respiratory Rate 18 16 Blood Pressure 183/87 H Pulse Oximetry 100 100 98 01/31/21 22:00 02/01/21 06:00 Temperature 98.1 F 97.5 F L Pulse Rate 68 58 L Respiratory Rate 16 16 Blood Pressure 176/84 H 161/73 H Pulse Oximetry 98 96 Intake/Output Intake/Output: Intake & Output 01/29/21 01/30/21 01/31/21 02/01/21 23:59 23:59 23:59 23:59 Intake Total 1765 3030 Output Total 3350 3300 Balance -1585 -270 Meds/Results Medicati
[2021-02-01 16:36] VITALS: BP 165/86; PULSE 65; RESP 18; TEMP 37.3; O2SAT 98
[2021-02-01 20:00] VITALS: PULSE 60; RESP 20; O2SAT 97
[2021-02-01 21:58] VITALS: BP 169/87; PULSE 69; RESP 20; TEMP 36.9; O2SAT 100
[2021-02-01 22:54] VITALS: PULSE 60; O2SAT 97
[2021-02-02] MEDS: SODIUM CHLORIDE 0.9% IV 1,000 ML 125 ML IV CONT ×2 (01:03→08:26)
[2021-02-02 06:00] VITALS: BP 172/91; PULSE 62; RESP 20; TEMP 36.5; O2SAT 98
[2021-02-02 08:09] VITALS: PULSE 60; O2SAT 97
[2021-02-02 08:19] LABS: Anion Gap 2 mmol/L (8-16); Blood Urea Nitrogen 21 mg/dL (9-20); Calcium 8.4 mg/dL (8.4-10.2); Carbon Dioxide 25 mmol/L (22-30); Chloride 116 mmol/L (98-107); Estimated CRCL calculation 30 ml/min; Estimated Glomerular Filt Rate 25; Glucose 103 mg/dL (75-110); Potassium 4.3 mmol/L (3.4-5.0); Sodium 143 mmol/L (137-145)
--- NOTE | 2021-02-02 11:35 | PM.DS ---
DS: Admitting Diagnosis Admitting Diagnosis Admitting Diagnosis: (1) Acute renal failure: (2) Dysuria: (3) Tobacco use: (4) Viral illness: DS: Discharge Diagnosis Discharge Diagnosis (1) Bilateral hydronephrosis: Code(s): N13.30 - Unspecified hydronephrosis Status: Acute Assessment and Plan: Secondary to patient not self catheterization often in enough through the day As per urology patient has been educated in regards to this (2) Acute renal failure: Qualifiers: Acute renal failure type: unspecified Qualified Code(s): N17.9 - Acute kidney failure, unspecified Code(s): N17.9 - Acute kidney failure, unspecified Status: Acute Assessment and Plan: It has been improved With IV hydration Will follow-up in outpatient setting (3) Cloudy urine: Code(s): R82.90 - Unspecified abnormal findings in urine Status: Acute Assessment and Plan: Likely secondary to urine being a stagnant for several hours A culture was negative for growth (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, not elsewhere classified Status: Acute Assessment and Plan: Self catheterization through the day (5) Dysuria: Code(s): R30.0 - Dysuria Status: Acute Assessment and Plan: Related to above issues No urinary tract infection at the moment (6) Tobacco use: Code(s): Z72.0 - Tobacco use Status: Acute Assessment and Plan: Patient denied the use of tobacco (7) Viral illness: Code(s): B34.9 - Viral infection, unspecified Status: Acute Assessment and Plan: Ruled out DS: Summary Hospital Course Reason for hospitalization: Nausea and vomiting Hospital Course: This is a 40-year-old male with past medical history significant for atonic bladder, patient does self catheterization at nighttime before going to bed. He presented to his primary care physician because he had not been feeling well had been having some general malaise with stomach upset nausea and vomit for a few days he was prescribed antibiotics and sent home however patient was sent to the emergency room after lab work showed elevated creatinine. A CT of abdomen and pelvis was significant for bilateral hydronephrosis as well. Patient was started on aggressive IV hydration a consult was obtained with urology and nephrology. A UA was nonsignificant for infection no need for antibiotics at this time was decided in conjunction with urologist. His BUN and creatinine had improvement and no other complications or events where present during this hospitalization. Patient will be going home. He will follow-up in the outpatient setting with urology and nephrology and his primary care physician. Procedures performed: None Consults obtained: Nephrology and urology Status at Discharge Cognitive/behavioral status at discharge: AAOX3 Functional status at discharge: independent ambulation Time Spent with Patient Time attestation: Total time spent providing and/or coordinating discharge services: Time spent: Greater than 30 minutes Exam Narrative: Exam Narrative: Lying in bed Const: General: comfortable, no acute distress, well developed, alert and awake Nutritional Appearance: average body habitus Orientation/consciousness: patient oriented x3 HENMT: Head: normal to inspection, normocephalic and atraumatic Ears: hearing grossly normal bilaterally Face and sinus: normal facial exam Eyes: General: appearance normal, both eyes and all related structures Pupils: Equal, round and reactive pupils present EOM: EOMs intact bilaterally Neck: Neck: full ROM, no lymphadenopathy and no JVD Thyroid: thyroid normal Lymphatic: no lymphadenopathy noted Resp: Effort & Inspection: normal respiratory effort and able to speak in complete sentences Auscultation: clear to auscultation bilaterally Cardio: Jugular venous
[2021-02-02 14:00] VITALS: BP 169/95; PULSE 76; RESP 20; TEMP 36.9; O2SAT 99
== END 2021-02-02 14:05 | disposition home or self-care (01) | DRG 684 ==
LOC: ANHED 12:07 → ANH3MEDSUR 12:52
PROVIDERS: Nurse Practitioner Adult Health; Admitting Provider Internal Medicine; Emergency Provider Emergency Medicine; PCP Physician Assistant; Visit Provider Internal Medicine
DX: N17.9 Acute kidney failure, unspecified (principal); M19.90 Unspecified osteoarthritis, unspecified site; N31.9 Neuromuscular dysfunction of bladder, unspecified; N31.2 Flaccid neuropathic bladder, not elsewhere classified; R33.8 Other retention of urine; R30.0 Dysuria; N13.30 Unspecified hydronephrosis; F17.210 Nicotine dependence, cigarettes, uncomplicated
CPT/HCPCS: 36415; 51702; 74018; 74176; 80048; 80053; 81003; 85025; 87086; 96360; 99285; J7030

== ENCOUNTER 2021-02-09 14:29 | Outpatient (CLI) | payer OTHER, SELFPAY ==
[2021-02-09 16:02] LABS: Anion Gap 6 mmol/L (8-16); Blood Urea Nitrogen 44 mg/dL (9-20); Calcium 8.7 mg/dL (8.4-10.2); Carbon Dioxide 23 mmol/L (22-30); Chloride 112 mmol/L (98-107); Estimated Glomerular Filt Rate 17; Glucose 96 mg/dL (75-110); Potassium 4.2 mmol/L (3.4-5.0); Sodium 141 mmol/L (137-145)
== END 2021-02-09 14:30 | disposition home or self-care (01) ==
LOC: ANHLAB 14:31
PROVIDERS: PCP Physician Assistant; Visit Provider Internal Medicine
DX: N17.9 Acute kidney failure, unspecified (principal)
CPT/HCPCS: 36415; 80048

== ENCOUNTER 2021-02-14 13:28 | Outpatient (CLI) | payer OTHER, SELFPAY ==
[2021-02-14 15:00] LABS: Alanine Aminotransferase 13 U/L (4-50); Albumin Level 4.6 g/dL (3.5-5.1); Alkaline Phosphatase 73 U/L (38-126); Anion Gap 5 mmol/L (8-16); Aspartate Amino Transferase 29 U/L (17-59); Bilirubin,Total 0.3 mg/dL (0.2-1.3); Blood Urea Nitrogen 43 mg/dL (9-20); Calcium 9.1 mg/dL (8.4-10.2); Carbon Dioxide 29 mmol/L (22-30); Chloride 107 mmol/L (98-107); Estimated Glomerular Filt Rate 22; Glucose 91 mg/dL (75-110); Potassium 4.8 mmol/L (3.4-5.0); Sodium 141 mmol/L (137-145)
== END 2021-02-14 13:29 | disposition home or self-care (01) ==
LOC: ANHLAB 13:29
PROVIDERS: PCP Physician Assistant; Visit Provider Physician Assistant
DX: N17.9 Acute kidney failure, unspecified (principal)
CPT/HCPCS: 36415; 80053

== ENCOUNTER 2021-02-21 10:25 | Outpatient (CLI) | payer OTHER, SELFPAY ==
[2021-02-21 11:26] LABS: Alanine Aminotransferase 16 U/L (4-50); Albumin Level 4.4 g/dL (3.5-5.1); Alkaline Phosphatase 69 U/L (38-126); Anion Gap 4 mmol/L (8-16); Aspartate Amino Transferase 31 U/L (17-59); Bilirubin,Total 0.4 mg/dL (0.2-1.3); Blood Urea Nitrogen 31 mg/dL (9-20); Calcium 9.7 mg/dL (8.4-10.2); Carbon Dioxide 30 mmol/L (22-30); Chloride 108 mmol/L (98-107); Estimated Glomerular Filt Rate 33; Glucose 99 mg/dL (75-110); Potassium 4.6 mmol/L (3.4-5.0); Sodium 142 mmol/L (137-145)
== END 2021-02-21 10:26 | disposition home or self-care (01) ==
PROVIDERS: PCP Physician Assistant; Visit Provider Physician Assistant
DX: N17.9 Acute kidney failure, unspecified (principal)
CPT/HCPCS: 36415; 80053

== ENCOUNTER 2021-03-10 10:26 | Outpatient (CLI) | payer OTHER, SELFPAY ==
[2021-03-10 11:59] LABS: Albumin Level 4.5 g/dL (3.5-5.1); Anion Gap 4 mmol/L (8-16); Blood Urea Nitrogen 20 mg/dL (9-20); Calcium 9.6 mg/dL (8.4-10.2); Carbon Dioxide 31 mmol/L (22-30); Chloride 108 mmol/L (98-107); Estimated Glomerular Filt Rate 42; Glucose 98 mg/dL (75-110); Phosphorus 2.9 mg/dL (2.5-4.5); Potassium 4.6 mmol/L (3.4-5.0); Sodium 143 mmol/L (137-145)
== END 2021-03-10 10:27 | disposition home or self-care (01) ==
PROVIDERS: PCP Physician Assistant; Visit Provider Internal Medicine Nephrology
DX: N17.8 Other acute kidney failure (principal)
CPT/HCPCS: 36415; 80069

== ENCOUNTER 2021-04-11 10:51 | Outpatient (CLI) | payer OTHER, SELFPAY ==
[2021-04-11 11:42] LABS: Albumin Level 4.3 g/dL (3.5-5.1); Anion Gap 6 mmol/L (8-16); Blood Urea Nitrogen 21 mg/dL (9-20); Calcium 9.2 mg/dL (8.4-10.2); Carbon Dioxide 25 mmol/L (22-30); Chloride 112 mmol/L (98-107); Estimated Glomerular Filt Rate 52; Glucose 102 mg/dL (75-110); Phosphorus 1.9 mg/dL (2.5-4.5); Potassium 4.1 mmol/L (3.4-5.0); Sodium 143 mmol/L (137-145)
== END 2021-04-11 10:52 | disposition home or self-care (01) ==
LOC: ANHLAB 10:53
PROVIDERS: PCP Physician Assistant; Visit Provider Internal Medicine Nephrology
DX: N17.8 Other acute kidney failure (principal)
CPT/HCPCS: 36415; 80069

== ENCOUNTER 2021-07-11 16:42 | Outpatient (CLI) | payer OTHER, SELFPAY ==
[2021-07-11 17:20] LABS: Albumin Level 4.6 g/dL (3.5-5.1); Anion Gap 4 mmol/L (8-16); Blood Urea Nitrogen 22 mg/dL (9-20); Calcium 9.5 mg/dL (8.4-10.2); Carbon Dioxide 28 mmol/L (22-30); Chloride 109 mmol/L (98-107); Estimated Glomerular Filt Rate 56; Glucose 100 mg/dL (65-110); Phosphorus 1.8 mg/dL (2.5-4.5); Potassium 4.1 mmol/L (3.4-5.0); Sodium 141 mmol/L (137-145)
== END 2021-07-11 16:43 | disposition home or self-care (01) ==
LOC: ANHLAB 16:44
PROVIDERS: PCP Physician Assistant; Visit Provider Internal Medicine Nephrology
DX: N17.8 Other acute kidney failure (principal)
CPT/HCPCS: 36415; 80069

== ENCOUNTER 2021-07-11 17:02 | Emergency (ER) | payer OTHER, SELFPAY ==
--- NOTE | ~2021-07-11 | CT_ITS ---
EXAMINATION: CT abdomen pelvis w con DATE: 07/11/2021 20:11 INDICATION: Abdominal pain. Elevated lipase. TECHNIQUE: Computed tomography (CT) of the abdomen and pelvis was performed with 100 mL Omnipaque-350 intravenous contrast. Automated exposure control and iterative reconstruction technique were employe d. The dose-length product was 330.38 mGy-cm. COMPARISON: 01/31/2021 FINDINGS: Lung bases are clear. Visualized inferior heart is normal. No pericardial or pleural effusion. Liver, gallbladder, spleen, pancreas and bilateral adrenal glands are normal. Again seen is moderate to sev ere atrophy of the left kidney. There is urothelial enhancement at the bilateral renal pelvises sees raising concern for ascending urinary tract infection. Mild diffuse bladder wall thickening with some trabeculation suggesting sequela of chronic outlet obstruction. Penile prosthesis with implant in th e anterior right pelvis. Normal appendix. No bowel obstruction. Small fat-containing left inguinal he rnia. No free intraperitoneal gas or fluid. No pathologically enlarged abdominal or pelvic lymphadeno johanna. Sacral nerve root stimulator with lead extending through the left S3 neural foramen. Mild to m oderate lumbar and lower thoracic spondylosis. IMPRESSION: 1. Urothelial enhancement at the bilateral renal collecting systems suspicious for ascending urinary tract infection. Correlate with urinalysis. 2. Chronic left renal atrophy. Reviewed, dictated and finalized at location A.
[2021-07-11 17:04] VITALS: BP 151/82; PULSE 99; RESP 17; TEMP 37.2; O2SAT 100
[2021-07-11 17:39] LABS: Basophils Absolute Auto 0.1 K/mm3 (0.0-0.1); Basophils Percent Auto 0.6 % (0.2-1.2); Eosinophils Absolute Auto 0.1 K/mm3 (0-0.3); Hematocrit 45.4 % (42.0-52.0); Hemoglobin 16.3 g/dL (14.0-18.0); Immature Granulocyte Absolute 0.03 K/mm3 (0.00-0.031); Immature Granulocyte Percent A 0.3 % (0-0.5); Lymphocytes Absolute Auto 1.73 K/mm3 (0.9-3.2); Mean Corpuscular HGB Conc 35.9 g/dl (32-36); Mean Corpuscular Hemoglobin 37.5 pg (26-34); Mean Corpuscular Volume 104.4 fl (80-100); Mean Platelet Volume 10.2 fl (7.4-10.4); Monocytes Absolute Auto 0.7 K/mm3 (0.1-0.6); Monocytes Percent Auto 8.2 % (2.6-8.5); Neutrophils Percent Auto 69.9 % (45.5-73.1); Platelet Count Result 276 k/mm3 (150-375); Red Blood Count 4.35 M/mm3 (4.6-6.20); Red Cell Distribution Width 11.9 % (11.5-14.5); White Blood Count 8.6 K/mm3 (4.5-10.0)
[2021-07-11 17:50] LABS: Alanine Aminotransferase 17 U/L (4-50); Albumin Level 4.7 g/dL (3.5-5.1); Alkaline Phosphatase 107 U/L (38-126); Anion Gap 4 mmol/L (8-16); Aspartate Amino Transferase 32 U/L (17-59); Bilirubin,Total 0.6 mg/dL (0.2-1.3); Blood Urea Nitrogen 22 mg/dL (9-20); Calcium 9.7 mg/dL (8.4-10.2); Carbon Dioxide 28 mmol/L (22-30); Chloride 109 mmol/L (98-107); Estimated CRCL calculation 57 ml/min; Estimated Glomerular Filt Rate 56; Glucose 97 mg/dL (65-110); Lipase 1047 U/L (23-300); Sodium 141 mmol/L (137-145)
[2021-07-11 19:32] LABS: Add Urine Microscopic? YES; Appearance Urine Clear (Clear); Bilirubin Urine Negative (Negative); Blood Urine 2+ (Negative); Color Urine Yellow (Yellow); Glucose Urine UA Negative (Negative); Ketones Urine Trace mg/dL (Negative); Leukocyte Esterase Ur 2+ LEU/UL (Negative); Mucus Urine Rare /lpf; Nitrate Urine Negative (Negative); Protein Urine Negative (Negative); Specific Grav Ur 1.015 (1.001-1.035); Squamous Epithelial Cell Urine Few /hpf (Few); Urobilinogen Urine Negative mg/dL (<2.0); WBC Urine 21-30 /hpf
[2021-07-11 19:40] VITALS: BP 131/93; PULSE 74; RESP 12; O2SAT 97
[2021-07-11] MEDS: ONDANSETRON INJ 4 MG/2 ML VIAL IV PUSH (20:20)
[2021-07-11] MEDS: SODIUM CHLORIDE 0.9% IV 1,000 ML 999 ML IV CONT (20:20)
--- NOTE | 2021-07-11 20:51 | ED.GENADULT ---
HPI - General Adult General Chief complaint: Abdominal Pain Stated complaint: RT Abd Pain Time Seen by Provider: 07/11/21 19:46 History of Present Illness HPI narrative: Patient 41-year-old gentleman who presents the emergency department with chief complaint of abdominal pain. Patient states that today he started having pain in the epigastric region reports that its more epigastric to right quadrant reports that it does not radiate to his back states this can have an aching-like pain the patient states that the symptoms or not improved by anything reports that he had some nausea. The patient denies diarrhea denies fever reports that he is a nondrinker Related Data Allergies Allergy/AdvReac Type Severity Reaction Status Date / Time No Known Allergies Allergy Verified 01/31/21 14:13 Review of Systems Review of Systems: A 10 system review of systems was completed on the patient and is negative except for what is stated in the HPI. Nursing and ancillary documentation was reviewed. PMFSH Past Medical History Medical History Arthritis Renal disease Surgical History Surgical History History of bladder surgery InterStim placement. Family History Family History Sibling Family history of multiple sclerosis Hypertension Mother Family history of pancreatic cancer Family history of seizure disorder Social History Social History Smoking packs per day: 1 Smoking cigarettes per day: 20.0 Years smoked: 25 Smoking pack-years: 25.00 Smoking status: Current every day smoker Tobacco type: cigarettes Second hand tobacco smoke exposure: Yes Alcohol intake: current Drinks per week: 0 Substance use: current Substance use type: marijuana Gender identity (if verbalized by the patient): Male Sexual Orientation (if Verbalized by the Patient): Straight or Heterosexual Spiritual care concerns: No Exam Narrative: GENERAL: Well-appearing, well-nourished, and in no acute distress. HEAD: Normocephalic, atraumatic. EYES: PERRLA and EOMI. ENT: Nares clear, no rhinorrhea or epistaxis. Mucous membranes moist. NECK: Supple. CHEST: Clear to auscultation. No respiratory distress. HEART: Regular rate and rhythm. No murmur heard. Normal peripheral pulses. ABDOMEN: Soft, mild epigastric tenderness to palpation, nondistended, normal active bowel sounds. EXTREMITIES: Normal range of motion. No edema. SKIN: Warm, dry, no rash. NEURO: No focal deficits. Alert and oriented x3. PSYCH: Normal mood and affect. Course Course Emergency Course: Patient was found to have a mildly elevated lipase. CT scan of the abdomen pelvis showed no evidence of acute intra-abdominal pathology and no evidence of acute pancreatitis on CT scan. The patient reports that his pain is doing better at this time reports that he did not want to take the pain medications and due to the lipase being elevated 3 times the baseline and having discomfort in the epigastric region the patient was offered admission the patient reports that he is feeling better at this time and would like to try clear liquids and bowel rest at home the patient was instructed if his symptoms worsen he should return to the emergency department immediately. Vital Signs Vital signs: Vital Signs Temperature 37.2 C 07/11/21 17:04 Pulse Rate 99 07/11/21 17:04 Respiratory Rate 17 07/11/21 17:04 Blood Pressure 151/82 H 07/11/21 17:04 Pulse Oximetry 100 07/11/21 17:04 Temperature 37.2 C 07/11/21 17:04 Pulse Rate 74 07/11/21 19:40 Respiratory Rate 12 07/11/21 19:40 Blood Pressure 131/93 H 07/11/21 19:40 Pulse Oximetry 97 07/11/21 19:40 Medical Decision Making Vital Signs Vital Signs: Vital Signs
[2021-07-11 21:15] VITALS: BP 133/88; PULSE 88; RESP 17; O2SAT 97
== END 2021-07-11 21:15 | disposition home or self-care (01) ==
PROVIDERS: Emergency Medicine; Emergency Provider Emergency Medicine; PCP Physician Assistant
DX: K85.90 Acute pancreatitis without necrosis or infection, unspecified (principal); R10.84 Generalized abdominal pain; M19.90 Unspecified osteoarthritis, unspecified site; N28.9 Disorder of kidney and ureter, unspecified; F17.210 Nicotine dependence, cigarettes, uncomplicated
CPT/HCPCS: 36415; 74177; 80053; 80069; 81001; 83690; 85025; 87077; 87086; 87088; 87186; 96361; 96374; 99284; J2405; J7030; Q9967

== ENCOUNTER 2021-07-18 14:09 | Outpatient (CLI) | payer OTHER, SELFPAY ==
[2021-07-18 14:39] LABS: Lipase 55 U/L (23-300)
== END 2021-07-18 14:10 | disposition home or self-care (01) ==
PROVIDERS: PCP Physician Assistant; Visit Provider Physician Assistant
DX: K85.90 Acute pancreatitis without necrosis or infection, unspecified (principal)
CPT/HCPCS: 36415; 83690

== ENCOUNTER 2023-12-18 09:13 | Outpatient (CLI) | payer OTHER, SELFPAY ==
[2023-12-18 09:32] LABS: Basophils Absolute Auto 0.1 K/mm3 (0.0-0.1); Basophils Percent Auto 1.2 % (0.2-1.2); Eosinophils Absolute Auto 0.4 K/mm3 (0-0.3); Eosinophils Percent Auto 4.8 % (0-4.4); Hematocrit 50.4 % (42.0-52.0); Hemoglobin 17.5 g/dL (14.0-18.0); Immature Granulocyte Absolute 0.03 K/mm3 (0.00-0.031); Immature Granulocyte Percent A 0.4 % (0-0.5); Lymphocytes Absolute Auto 2.08 K/mm3 (0.9-3.2); Lymphocytes Percent Auto 26.8 % (18.3-44.2); Mean Corpuscular HGB Conc 34.7 g/dl (32-36); Mean Corpuscular Volume 100.8 fl (80-100); Mean Platelet Volume 10.2 fl (7.4-10.4); Monocytes Absolute Auto 0.6 K/mm3 (0.1-0.6); Monocytes Percent Auto 8.3 % (2.6-8.5); Neutrophils Absolute Auto 4.5 K/mm3 (1.3-6.7); Neutrophils Percent Auto 58.5 % (45.5-73.1); Platelet Count Result 249 k/mm3 (150-375); Red Cell Distribution Width 12.6 % (11.5-14.5); White Blood Count 7.8 K/mm3 (4.5-10.0)
[2023-12-18 09:41] LABS: Alanine Aminotransferase 26 U/L (6-50); Albumin Level 4.1 g/dL (3.5-5.1); Alkaline Phosphatase 98 U/L (38-126); Anion Gap 4 mmol/L (8-16); Aspartate Amino Transferase 32 U/L (17-59); Bilirubin,Total 0.5 mg/dL (0.2-1.3); Blood Urea Nitrogen 15 mg/dL (9-20); Calcium 9.2 mg/dL (8.4-10.2); Carbon Dioxide 29 mmol/L (22-30); Chloride 106 mmol/L (98-107); Cholesterol 215 mg/dL (0-200); Estimated Glomerular Filt Rate 60; Glucose 104 mg/dL (65-110); HDL Direct 40 mg/dL; Potassium 4.1 mmol/L (3.4-5.0); Sodium 139 mmol/L (137-145); Triglycerides 228 mg/dL (<150)
[2023-12-18 09:52] LABS: LDL Cholesterol Direct 124 mg/dL
[2023-12-18 10:13] LABS: Prostate Specific Antigen 0.2 ng/mL (< OR = 4.0)
[2023-12-18 10:49] LABS: Folic Acid 9.4 ng/mL (2.76->20)
[2023-12-18 13:56] LABS: Appearance Urine Cloudy (Clear); Bacteria Urine None Seen /hpf; Bilirubin Urine Negative (Negative); Blood Urine Trace (Negative); Color Urine Yellow (Yellow); Glucose Urine UA Negative (Negative); Ketones Urine Negative (Negative); Leukocyte Esterase Ur 3+ LEU/UL (NEGATIVE); Nitrate Urine Negative (Negative); Non Pathogenic Casts 0-2; Protein Urine Negative (Negative); RBC Urine 0-2 /hpf (0-2); Specific Grav Ur 1.011 (1.001-1.035); Squamous Epithelial Cell Urine None seen /hpf (Few); Urobilinogen Urine 0.2 mg/dL (<2.0); WBC Urine >100 /hpf (0-3)
[2023-12-18 13:57] LABS: Add Urine Microscopic? YES
== END 2023-12-18 09:14 | disposition home or self-care (01) ==
LOC: ANHLAB 09:15
PROVIDERS: PCP Physician Assistant; Visit Provider Physician Assistant
DX: Z12.5 Encounter for screening for malignant neoplasm of prostate (principal); R30.0 Dysuria; Z00.00 Encounter for general adult medical examination without abnormal findings
CPT/HCPCS: 36415; 80053; 80061; 81001; 82607; 82746; 84153; 84443; 85025; 87086; 87181; G0103

== ENCOUNTER 2024-06-24 14:15 | Outpatient (CLI) | payer OTHER, SELFPAY ==
[2024-06-24 14:54] LABS: Anion Gap 7 mmol/L (4-12); Blood Urea Nitrogen 20 mg/dL (9-20); Calcium 9.2 mg/dL (8.4-10.2); Carbon Dioxide 30 mmol/L (22-30); Chloride 102 mmol/L (98-107); Estimated Glomerular Filt Rate 60; Glucose 90 mg/dL (65-110); Potassium 4.3 mmol/L (3.4-5.0); Sodium 139 mmol/L (137-145)
[2024-06-24 15:08] LABS: Add Urine Microscopic? YES; Appearance Urine Turbid (Clear); Bacteria Urine 1+ /hpf; Bilirubin Urine Negative (Negative); Blood Urine 1+ (Negative); Budding Yeast Urine Present /hpf; Color Urine Yellow (Yellow); Glucose Urine UA Negative (Negative); Ketones Urine Negative (Negative); Leukocyte Esterase Ur 3+ LEU/UL (Negative); Need Manual Microscopic Reviewed; Nitrate Urine Negative (Negative); Non Pathogenic Casts 0-2; Protein Urine Trace mg/dL (Negative); RBC Urine 0-2 /hpf (0-2); Squamous Epithelial Cell Urine None Seen /hpf (Few); Urobilinogen Urine 0.2 mg/dL (<2.0); WBC Urine >100 /hpf (0-3)
== END 2024-06-24 14:16 | disposition home or self-care (01) ==
LOC: ANHLAB 14:17
PROVIDERS: PCP Physician Assistant; Visit Provider Nurse Practitioner
DX: N13.30 Unspecified hydronephrosis (principal); R30.0 Dysuria
CPT/HCPCS: 36415; 80048; 81001; 87077; 87086; 87088

== ENCOUNTER 2024-12-03 11:23 | Outpatient (CLI) | payer OTHER, SELFPAY ==
--- OUTSIDE RECORDS SUMMARY | 2024-12-03 12:11 | XMS_ITS | Clinical Summary ---
Author Organization [facility] Address [address] [place] [id number] Phone Care Team Providers Care [employer] Density [employer] Co[employer] Operator Name Role Phone Johnny Brown Primary Care Provider [phone] Allergies No known active allergies Medications Medication Sig Dispensed Refills Start Date End Date Status ondansetron ODT (ZOFRAN-ODT) 4 MG dispersible tablet DISSOLVE 1 TO 2 TABLETS ON THE TONGUE EVERY 8 HOURS NEEDED FOR NAUSEA OR VOMITING 01/19/2021 Active phenazopyridine (PYRIDIUM) 200 MG tablet Take 200 mg by mouth 3 (three) times a day if needed 04/12/2021 Active Active Problems Problem Noted Date Diagnosed Date Atonic neuropathic bladder Acute injury of kidney Family History Medical History Relation Comments Pancreatic cancer Mother Seizure disorder Mother Relation Status Comments Mother Social History Tobacco Use Types Packs/Day Years Used Date Smoking Tobacco: Every Day Cigarettes 1 25 Smokeless Tobacco: Never Tobacco Cessation:Ready to Q uit: No; Counseling Given: Yes Alcohol Use Standard Drinks/Week Comments Yes 0 (1 standard drink = 0.6 oz pur e alcohol) Sex and Gender Information Value Date Recorded Sex Assigned at Not on file Gender Identity Not on file Sexual Orientation Not on file Last Filed Vital Signs Vital Sign Reading Time Taken Comments Blood Pressure 132/68 02/24/2021 2:06 PM CDT Pulse - - Temperature - - Respiratory Rate 18 02/24/2021 2:06 PM CDT Oxygen Saturation - - Inhaled Oxygen Concentration - - Weight 74.8 kg (165 lb) 02/24/2021 2:06 PM CDT Height 170.2 cm (5' 7 ) 02/24/2021 2:06 PM CDT Body Mass Index 25.84 02/24/2021 2:06 PM CDT Plan of Treatment Health Maintenance Due Date Last Done Comments Influenza Vaccine (#1) 2024 Care Teams [employer] Operator Relationship Specialty Start Date End Date Johnny Brown PA [address] [place] [id number] PCP - General Family Medicine 02/23/21
[2024-12-03 12:15] LABS: Add Urine Microscopic? YES; Appearance Urine Cloudy (Clear); Bacteria Urine 4+ /hpf; Bilirubin Urine Negative (Negative); Blood Urine Trace (Negative); Color Urine Yellow (Yellow); Glucose Urine UA Negative (Negative); Ketones Urine Negative (Negative); Leukocyte Esterase Ur 3+ LEU/UL (Negative); Nitrate Urine Positive (Negative); Non Pathogenic Casts 0-2; Protein Urine Negative (Negative); RBC Urine 0-2 /hpf (0-2); Specific Grav Ur 1.009 (1.001-1.035); Squamous Epithelial Cell Urine None Seen /hpf (Few); Urobilinogen Urine 0.2 mg/dL (<2.0); WBC Urine >100 /hpf (0-3)
== END 2024-12-03 11:24 | disposition home or self-care (01) ==
LOC: ANHLAB 11:25
PROVIDERS: PCP Physician Assistant; Visit Provider Nurse Practitioner
DX: R30.0 Dysuria (principal)
CPT/HCPCS: 81001; 87077; 87086; 87186

== ENCOUNTER 2025-03-12 14:56 | Outpatient (CLI) | payer OTHER, SELFPAY ==
--- OUTSIDE RECORDS SUMMARY | 2025-03-12 14:59 | XMS_ITS | Clinical Summary ---
Author Organization [facility] Address [address] [place] [address] Phone Care Team Providers Care Chemical Inspector Name Role Phone Johnny Brown Primary Care Provider [phone] Allergies No known active allergies Medications ondansetron ODT (ZOFRAN-ODT) 4 MG dispersible tablet DISSOLVE 1 TO 2 TABLETS ON THE TONGUE EVERY 8 HOURS NEEDED FOR NAUSEA OR VOMITING 1 Active phenazopyridine (PYRIDIUM) 200 MG tablet Take 200 mg by mouth 3 (three) times a day if needed 1 Active Active Problems Problem Noted Date Diagnosed [...] Recorded Sex Assigned at Not on file Legal Sex Male 9:41 AM MDT Gender Identity Not on file Sexual Orientation [...] Due Date Last Done Comments Influenza Vaccine (Season Ended) 2025 Insurance Care Teams Chemical Inspector Relationship Specialty Start Date End Date Johnny Brown PA [address] [facility] [address] [place] [address] PCP - General Family Medicine 02/23/21
--- OUTSIDE RECORDS SUMMARY | 2025-03-12 14:59 | XMS_ITS | Clinical Summary ---
Author Organization [employer] [facility] Address [address] [place] [address] Care Team Providers Care Editor Producer Name Role Phone Unavailable Primary Care Provider Unavailabl e Social History Tobacco Use Types Packs/Day Years Used Date Smoking Tobacco: Never Assessed Sex and Gender Information Value Date Recorded Sex Assigned at Not on file Legal Sex Male 4:49 PM CDT Gender Identity Not on file Sexual Orientation Not on file Plan of Treatment Health Maintenance Due Date Last Done Comments DTAP/TDAP/TD VACCINES (1 - Tdap) 1999 HEPATITIS B VACCINES (1 of 3 - 19+ 3-dose series) 1999 INFLUENZA VACCINE (#1) 2024 COLORECTAL SCREENING 2025 Colorectal Cancer Screening 2025 FIT-DNA Q 3 years 2025 FIT/FOBT Q 1 year 2025 Flex Sig/CT Colonography Q 5 years 2025 HPV VACCINES Aged Out No longer eligi ble based on patient's age to complete this topic
[2025-03-12 15:55] LABS: Add Urine Microscopic? YES; Appearance Urine Cloudy (Clear); Bacteria Urine 4+ /hpf; Bilirubin Urine Negative (Negative); Blood Urine 2+ (Negative); Color Urine Yellow (Yellow); Glucose Urine UA Negative (Negative); Ketones Urine Negative (Negative); Leukocyte Esterase Ur 3+ LEU/UL (Negative); Nitrate Urine Positive (Negative); Non Pathogenic Casts 0-2; Protein Urine 1+ mg/dL (Negative); Specific Grav Ur 1.013 (1.001-1.035); Squamous Epithelial Cell Urine None Seen /hpf (Few); Urobilinogen Urine 0.2 mg/dL (<2.0); WBC Urine >100 /hpf (0-3)
== END 2025-03-12 14:57 | disposition home or self-care (01) ==
LOC: ANHLAB 14:57
PROVIDERS: PCP Internal Medicine; Visit Provider Nurse Practitioner
DX: R39.9 Unspecified symptoms and signs involving the genitourinary system (principal)
CPT/HCPCS: 81001; 87077; 87086; 87186

== ENCOUNTER 2025-05-27 12:00 | Outpatient (CLI) | payer OTHER, SELFPAY ==
--- OUTSIDE RECORDS SUMMARY | 2025-05-27 12:24 | XMS_ITS | Clinical Summary ---
Author Organization [employer] Estelleangelique flores [facility] Address [address] [place] [address] Care Team Providers Care Health Management Consultant Name Role Phone Unavailable Primary Care Provider Unavailabl e Social History Tobacco Use Types Packs/Day Years Used Date Smoking Tobacco: Never Assessed Sex and Gender Information Value Date Recorded Sex Assigned at Not on file Legal Sex Male 4:49 PM CDT Gender Identity Not on file Sexual Orientation Not on file Plan of Treatment Health Maintenance Due Date Last Done Comments HPV VACCINES (1 - Male 3-dose series) 1995 DTAP/TDAP/TD VACCINES (1 - Tdap) 1999 HEPATITIS B VACCINES (1 of 3 - 19+ 3-dose series) 02/19 COLORECTAL SCREENING 2025 Colorectal Cancer Screening 2025 FIT-DNA Q 3 years 2025 FIT/FOBT Q 1 year 2025 Flex Sig/CT Colonography Q 5 years 2025 INFLUENZA VACCINE (#1) 2025
--- OUTSIDE RECORDS SUMMARY | 2025-05-27 12:24 | XMS_ITS | Clinical Summary ---
Author Organization [facility] Address [address] [place] [address] Phone Care Team Providers Care Offset Plate Maker Name Role Phone Johnny Brown Primary Care Provider [phone] Allergies No known active allergies Medications ondansetron [...] 2:06 PM CDT Height 170.2 cm (5' 7) 02/24/2021 2:06 PM CDT Body Mass Index 25.84 02/24/2021 2:06 PM CDT Plan of Treatment Health Maintenance Due Date Last Done Comments Influenza Vaccine (#1) 2025 Insurance Care Teams Offset Plate Maker Relationship Specialty Start Date End Date Johnny Brown PA [address] [facility] [address] [place] [address] PCP - General Family Medicine 02/23/21
[2025-05-27 12:31] LABS: Add Urine Microscopic? YES; Appearance Urine Turbid (Clear); Glucose Urine UA Negative (Negative); Leukocyte Esterase Ur 3+ LEU/UL (Negative); Nitrate Urine Positive (Negative); Non Pathogenic Casts 0-2; Specific Grav Ur 1.012 (1.001-1.035)
[2025-05-27 12:54] LABS: Anion Gap 7 mmol/L (4-12); Blood Urea Nitrogen 19 mg/dL (9-20); Calcium 9.0 mg/dL (8.4-10.2); Carbon Dioxide 30 mmol/L (22-30); Chloride 100 mmol/L (98-107); Estimated Glomerular Filt Rate 48; Glucose 97 mg/dL (65-110); Potassium 3.8 mmol/L (3.4-5.0); Sodium 137 mmol/L (137-145)
== END 2025-05-27 12:01 | disposition home or self-care (01) ==
LOC: ANHLAB 12:02
PROVIDERS: PCP Internal Medicine; Visit Provider Nurse Practitioner
DX: R39.9 Unspecified symptoms and signs involving the genitourinary system (principal); N39.0 Urinary tract infection, site not specified
CPT/HCPCS: 36415; 80048; 81001; 87086

== ENCOUNTER 2025-06-29 14:50 | Outpatient (CLI) | payer OTHER, SELFPAY ==
--- OUTSIDE RECORDS SUMMARY | 2025-06-29 14:53 | XMS_ITS | Clinical Summary ---
Author Organization [employer] Srav[facility] Address [address] [place] [address] Care Team Providers Care General Labor Name Role Phone Unavailable Primary Care Provider [...] of 3 - 19+ 3-dose series) 02/19 HPV VACCINES (1 - 3-dose SCDM series) 2007 COLORECTAL SCREENING 2025 Colorectal Cancer Screening 2025 FIT-DNA Q 3 years 2025 FIT/FOBT Q 1 year 2025 Flex Sig/CT Colonography Q 5 years 2025 INFLUENZA VACCINE (#1) 2025
--- OUTSIDE RECORDS SUMMARY | 2025-06-29 14:53 | XMS_ITS | Clinical Summary ---
Author Organization [facility] Address [address] [place] [id number] Phone Care Team Providers Care Metabolic Specialist Name Role Phone Johnny Brown Primary Care Provider Allergies No known active allergies Medications ondansetron [...] Done Comments Influenza Vaccine (#1) [address] [place] [id number] Care Teams Metabolic Specialist Relationship Specialty Start Date End Date Johnny Brown PA [address] [facility] [address] [place] [address] PCP - General Family Medicine 02/23/21
[2025-06-29 15:36] LABS: Add Urine Microscopic? YES; Appearance Urine Cloudy (Clear); Glucose Urine UA Negative (Negative); Leukocyte Esterase Ur 3+ LEU/UL (Negative); Nitrate Urine Negative (Negative); Non Pathogenic Casts 0-2; Specific Grav Ur 1.015 (1.001-1.035)
== END 2025-06-29 14:51 | disposition home or self-care (01) ==
LOC: ANHLAB 14:51
PROVIDERS: PCP Nurse Practitioner; Visit Provider Nurse Practitioner
DX: N39.0 Urinary tract infection, site not specified (principal)
CPT/HCPCS: 81001; 87086

== ENCOUNTER 2025-08-17 14:58 | Outpatient (CLI) | payer OTHER, SELFPAY ==
[2025-08-17 15:22] LABS: Add Urine Microscopic? YES; Appearance Urine Clear (Clear); Glucose Urine UA Negative (Negative); Leukocyte Esterase Ur 2+ LEU/UL (Negative); Nitrate Urine Negative (Negative); Non Pathogenic Casts 0-2; Specific Grav Ur 1.013 (1.001-1.035)
--- OUTSIDE RECORDS SUMMARY | 2025-08-17 16:35 | XMS_ITS | Clinical Summary ---
Author Organization [facility] Address [address] [place] [phone] Phone Care Team Providers Care Python Java Developer Name Role Phone Johnny Brown Primary Care Provider [phone] Allergies No known active allergies Medications ondansetron [...] Influenza Vaccine (#1) 2025 Insurance Care Teams Python Java Developer Relationship Specialty Start Date End Date Johnny Brown PA [address] [facility] [address] [place] [address] PCP - General Family Medicine 02/23/21
--- OUTSIDE RECORDS SUMMARY | 2025-08-17 16:35 | XMS_ITS | Clinical Summary ---
Author Organization [employer] Sravani sandra [facility] Address [address] [place] [address] Care Team Providers Care Paint Booth Operator Name Role Phone Unavailable Primary Care Provider [...]
== END 2025-08-17 14:59 | disposition home or self-care (01) ==
LOC: ANHLAB 14:59
PROVIDERS: PCP Nurse Practitioner; Visit Provider Nurse Practitioner
DX: N39.0 Urinary tract infection, site not specified (principal)
CPT/HCPCS: 81001; 87086